=== PATIENT | female | born 1940 | race Caucasian/White ===

== ENCOUNTER 2016-09-26 12:38 | Emergency (ER) | payer MEDICARE, OTHER ==
[2016-04-07 13:32] VITALS: BMI 17.8
[~2016-09-26 12:38] MED LIST: ARICEPT10 MG PO; ARTHROTEC EC 71 EACH PO; ASPIRIN81 MG PO; BABY ASPIRIN81 MG PO; BENZONATATE200 MG PO; BRILINTA90 MG PO; CELEXA10 MG PO; CLEOCIN HCL150 MG PO; CRESTOR20 MG PO; CRESTOR5 MG; FEXOFENADINE H180 MG PO; FLORAJEN3 CAPS460 MG PO; FLUTICASONE PRO16 GM NASAL; HYDROCODON-ACE1 EAC7 PO; IPRAT-ALBUT 0.5-3 ML UPD; LEVOTHROID50 MCG PO; MEDROL DOSE PACK4 MG PO; MUCINEX DM ER1 EAC1 PO; NITROSTAT0.4 MG SL; NORCO 7.5/325 T1 TA1 PO; PLAVIX75 MG PO; PROTONIX40 MG PO; PULMICORT0.5 MG/21 UPD; QVAR8.7 GM INH; RESTORIL15 MG; RESTORIL15 MG PO; SINGULAIR10 MG PO; SPIRIVA18 MCG INH; THEO-24200 MG PO; TUDORZA PRESS400 MCG INH; ZOFRAN4 MG PO
[2016-09-26 13:22] LABS: BASOPHILS 1.2 % (0-2); EOSINOPHILS 2.8 % (0-7); HEMATOCRIT 42.9 % (36.0-48.0); HEMOGLOBIN 14.2 g/dL (12-16); IMMATURE GRANULOCYTES 0.2 % (0-5); LYMPHOCYTES 26.3 % (15-50); MCH 30.5 pg (26.0-34.0); MCHC 33.1 g/dL (31.0-37.0); MCV 92.3 fL (80.0-100.0); MEAN PLATELET VOLUME 10.6 fL (7.4-10.4); MONOCYTES 7.4 % (2-11); NEUTROPHILS 62.1 % (40-80); PLATELET COUNT 190 10x3/uL (130-400); RBC 4.65 10x6/uL (4.00-5.40); RDW 14.5 % (11.5-14.5); WBC 6.5 10x3/uL (4.8-10.8)
[2016-09-26 13:30] LABS: ALBUMIN 3.4 g/dL (3.4-5.0); ANION GAP 11.4 mmol/L (8-16); BILIRUBIN - TOTAL 0.78 mg/dL (0.2-1.3); CALCIUM 9.2 mg/dL (8.5-10.1); CARBON DIOXIDE 29.4 mmol/L (21.0-32.0); POTASSIUM - SERUM 3.8 mmol/L (3.5-5.1); PROTEIN - SERUM 6.2 g/dL (6.4-8.2)
== END 2016-09-26 17:12 | disposition home or self-care (01) ==
LOC: D.ER 12:38
PROVIDERS: Emergency Medicine
DX: K52.9 Noninfective gastroenteritis and colitis, unspecified (principal); J44.9 Chronic obstructive pulmonary disease, unspecified; F03.90 Unspecified dementia, unspecified severity, without behavioral disturbance, psychotic disturbance, mood disturbance, and anxiety

== ENCOUNTER 2017-09-24 17:31 | Inpatient (IN) | payer MEDICARE, OTHER ==
[~2017-09-24] VITALS: Ht 162.6 cm; Wt 52.3 kg
[2017-09-24 18:33] LABS: BASOPHILS 0.9 % (0-2); EOSINOPHILS 4.3 % (0-7); HEMATOCRIT 41.6 % (36.0-48.0); HEMOGLOBIN 13.4 g/dL (12-16); IMMATURE GRANULOCYTES 0.2 % (0-5); LYMPHOCYTES 20.5 % (15-50); MCH 28.9 pg (26.0-34.0); MCHC 32.2 g/dL (31.0-37.0); MCV 89.8 fL (80.0-100.0); MEAN PLATELET VOLUME 10.8 fL (7.4-10.4); MONOCYTES 12.2 % (2-11); NEUTROPHILS 61.9 % (40-80); RBC 4.63 10x6/uL (4.00-5.40); RDW 15.1 % (11.5-14.5); WBC 5.3 10x3/uL (4.8-10.8)
[2017-09-24 18:36] LABS: PLATELET COUNT 141 10x3/uL (130-400)
[2017-09-24 18:47] LABS: ALBUMIN 3.3 g/dL (3.4-5.0); ANION GAP 9.2 mmol/L (8-16); BILIRUBIN - TOTAL 0.34 mg/dL (0.2-1.3); CALCIUM 9.1 mg/dL (8.5-10.1); CARBON DIOXIDE 32.3 mmol/L (21.0-32.0); POTASSIUM - SERUM 4.5 mmol/L (3.5-5.1); PROTEIN - SERUM 6.5 g/dL (6.4-8.2)
[2017-09-24 19:05] LABS: APTT 21.7 SECONDS (22.8-39.4); INR 0.99 (0.85-1.17); PROTIME 12.7 SECONDS (11.6-15.0)
[2017-09-24 23:00] VITALS: BP 161/101
[2017-09-24] MEDS ORDERED: HYDROCODON-ACE1 EAC7 PO (23:27)
[2017-09-24] MEDS ORDERED: BRILINTA90 MG PO (23:38)
[2017-09-24 23:51] VITALS: BP 165/95; BMI 18.7
[2017-09-25] VITALS (23 sets, daily range): BP systolic 86–146; BP diastolic 56–101
[2017-09-25 01:51] LABS: HEMATOCRIT 40.1 % (36.0-48.0); HEMOGLOBIN 12.8 g/dL (12-16); MCH 28.5 pg (26.0-34.0); MCHC 31.9 g/dL (31.0-37.0); MCV 89.3 fL (80.0-100.0); MEAN PLATELET VOLUME 10.4 fL (7.4-10.4); RBC 4.49 10x6/uL (4.00-5.40); RDW 15.2 % (11.5-14.5)
[2017-09-25 01:53] LABS: PLATELET COUNT 180 10x3/uL (130-400)
[2017-09-25 02:42] LABS: EOSINOPHILS 3 % (0-7); LYMPHOCYTES 27 % (15-50); MONOCYTES 14 % (2-11); NEUTROPHILS 56 % (40-80)
[2017-09-25 02:59] LABS: PLATELET ESTIMATE NORMAL
[2017-09-25 07:44] LABS: BASOPHILS 0.5 % (0-2); EOSINOPHILS 4.1 % (0-7); HEMATOCRIT 40.8 % (36.0-48.0); HEMOGLOBIN 13.4 g/dL (12-16); LYMPHOCYTES 18.6 % (15-50); MCHC 32.8 g/dL (31.0-37.0); MCV 88.3 fL (80.0-100.0); MEAN PLATELET VOLUME 10.4 fL (7.4-10.4); MONOCYTES 11.4 % (2-11); NEUTROPHILS 65.4 % (40-80); PLATELET COUNT 145 10x3/uL (130-400); RBC 4.62 10x6/uL (4.00-5.40); WBC 4.1 10x3/uL (4.8-10.8)
[2017-09-25 07:49] LABS: INR 1.04 (0.85-1.17); PROTIME 13.2 SECONDS (11.6-15.0)
[2017-09-25 07:51] LABS: CALCIUM 8.1 mg/dL (8.5-10.1); CREATININE - SERUM 0.8 mg/dL (0.6-1.3)
[2017-09-25 11:59] LABS: EOSINOPHILS 3.4 % (0-7); HEMATOCRIT 41.4 % (36.0-48.0); HEMOGLOBIN 13.7 g/dL (12-16); LYMPHOCYTES 19.6 % (15-50); MCH 29.3 pg (26.0-34.0); MCHC 33.1 g/dL (31.0-37.0); MCV 88.5 fL (80.0-100.0); MEAN PLATELET VOLUME 10.3 fL (7.4-10.4); MONOCYTES 7.7 % (2-11); NEUTROPHILS 68.3 % (40-80); PLATELET COUNT 140 10x3/uL (130-400); RBC 4.68 10x6/uL (4.00-5.40); RDW 15.2 % (11.5-14.5); WBC 4.1 10x3/uL (4.8-10.8)
[2017-09-26] VITALS (15 sets, daily range): BP systolic 101–193; BP diastolic 67–89; Ht 162.6 cm; Wt 52.3 kg
[2017-09-26 03:52] LABS: BASOPHILS 0.7 % (0-2); HEMATOCRIT 40.1 % (36.0-48.0); HEMOGLOBIN 13.1 g/dL (12-16); LYMPHOCYTES 25.7 % (15-50); MCHC 32.7 g/dL (31.0-37.0); MCV 88.9 fL (80.0-100.0); MEAN PLATELET VOLUME 10.2 fL (7.4-10.4); MONOCYTES 13.7 % (2-11); NEUTROPHILS 54.9 % (40-80); PLATELET COUNT 138 10x3/uL (130-400); RBC 4.51 10x6/uL (4.00-5.40); RDW 15.2 % (11.5-14.5); WBC 4.2 10x3/uL (4.8-10.8)
[2017-09-26 04:15] LABS: ALBUMIN 2.7 g/dL (3.4-5.0); ANION GAP 6.6 mmol/L (8-16); BILIRUBIN - TOTAL 0.7 mg/dL (0.2-1.3); CALCIUM 8.2 mg/dL (8.5-10.1); CARBON DIOXIDE 32.2 mmol/L (21.0-32.0); CREATININE - SERUM 0.8 mg/dL (0.6-1.3); POTASSIUM - SERUM 3.8 mmol/L (3.5-5.1); PROTEIN - SERUM 5.3 g/dL (6.4-8.2)
[2017-09-27 04:00] VITALS: BP 162/83
[2017-09-27] MEDS ORDERED: AMOX TR-K CLV 475 ML PO (07:44)
[2017-09-27] MEDS ORDERED: FLAGYL500 MG PO (07:45)
[2017-09-27] MEDS ORDERED: PROTONIX20 MG PO (07:45)
[2017-09-27 08:17] VITALS: BP 137/88
[2017-09-27 12:35] VITALS: BP 138/80
== END 2017-09-27 16:26 | disposition home health service (06) | DRG 378 ==
LOC: D.ER 17:31 → D.ICU 22:24 → D.MS 09-26 17:14
PROVIDERS: Emergency Medicine; Family Medicine; Internal Medicine Gastroenterology
DX: K57.31 Diverticulosis of large intestine without perforation or abscess with bleeding (principal); D62 Acute posthemorrhagic anemia; K57.92 Diverticulitis of intestine, part unspecified, without perforation or abscess without bleeding; K92.1 Melena; F03.90 Unspecified dementia, unspecified severity, without behavioral disturbance, psychotic disturbance, mood disturbance, and anxiety; J44.9 Chronic obstructive pulmonary disease, unspecified; I50.9 Heart failure, unspecified

== ENCOUNTER 2018-01-22 13:25 | Emergency (ER) | payer MEDICARE, OTHER ==
[~2018-01-22] VITALS: Ht 162.6 cm; Wt 45.5 kg
[~2018-01-22 13:25] MED LIST changes: +AMOX TR-K CLV 475 ML PO; +FLAGYL500 MG PO; +PROTONIX20 MG PO
[2018-01-22 13:28] VITALS: Ht 162.6 cm; Wt 45.5 kg
[2018-01-22 14:17] LABS: BASOPHILS 0.8 % (0-2); HEMATOCRIT 41.1 % (36.0-48.0); HEMOGLOBIN 13.2 g/dL (12-16); LYMPHOCYTES 15.6 % (15-50); MCHC 32.1 g/dL (31.0-37.0); MCV 96.5 fL (80.0-100.0); MONOCYTES 11.4 % (2-11); NEUTROPHILS 70.2 % (40-80); PLATELET COUNT 148 10x3/uL (130-400); RBC 4.26 10x6/uL (4.00-5.40); RDW 14.5 % (11.5-14.5)
[2018-01-22 14:52] LABS: ALBUMIN 3.2 g/dL (3.4-5.0); ALKALINE PHOSPHATASE 53 U/L (46-116); ALT (SGPT) 21 U/L (10-68); BILIRUBIN - TOTAL 0.49 mg/dL (0.2-1.3); CALC OSMOLALITY 282 mosm/kg (275-300); CARBON DIOXIDE 36.2 mmol/L (21.0-32.0); CHLORIDE - SERUM 105 mmol/L (98-107); CREATININE - SERUM 0.9 mg/dL (0.6-1.3); GLUCOSE 87 mg/dL (74-106); POTASSIUM - SERUM 4.3 mmol/L (3.5-5.1); PROTEIN - SERUM 5.9 g/dL (6.4-8.2); SODIUM 142 mmol/L (136-145); UREA NITROGEN 15 mg/dL (7-18); eGFR NON AFRICAN AMERICAN 64 mL/min (90-120)
[2018-01-22 15:03] LABS: CKMB 1.8 U/L (0.0-3.6); CREATINE KINASE 170 UL (21-215); TROPONIN-I < 0.017 ng/mL (0.000-0.060)
[2018-01-22 15:32] VITALS: BP 136/87
== END 2018-01-22 15:34 | disposition home or self-care (01) ==
LOC: D.ER 13:25
PROVIDERS: Emergency Medicine
DX: R07.9 Chest pain, unspecified (principal); J44.9 Chronic obstructive pulmonary disease, unspecified; Z86.73 Personal history of transient ischemic attack (TIA), and cerebral infarction without residual deficits; I50.9 Heart failure, unspecified; F03.90 Unspecified dementia, unspecified severity, without behavioral disturbance, psychotic disturbance, mood disturbance, and anxiety